=== PATIENT | female | born 1975 | race Caucasian/White ===

== ENCOUNTER 2022-05-05 06:02 | Day surgery (SDC) | payer OTHER ==
[~2022-05-05] VITALS: Ht 175.3 cm; Wt 85.8 kg
[~2022-05-05 06:02] MED LIST: MULVITA PO
--- NOTE | 2022-05-05 09:53 | NUR ---
Patient up to Ambulate independently. Gait steady. Discharge instructions reviewed with patient. Patient verbalizes understanding. Copy given to patient to take home. Discharged via wheelchair to private car for ride home.
== END 2022-05-05 10:10 | disposition home or self-care (01) ==
LOC: ORSCMMR 06:02 → ORD 07:30 → ORSCMMR 10:10
PROVIDERS: Surgery
PROC: 0HBT0ZX Excision of Right Breast, Open Approach, Diagnostic (ICD-10-PCS; principal; 2022-05-05 07:30)
DX: Q83.1 Accessory breast (principal)
CPT/HCPCS: 88305; A9270; J0690; J1100; J1885; J2250; J2405; J2704; J3010; J7120

== ENCOUNTER 2024-11-10 09:07 | Day surgery (SDC) | payer OTHER ==
[~2024-11-10] VITALS: Ht 170.2 cm; Wt 90.0 kg
[2024-11-10] VITALS (15 sets, daily range): BP systolic 103–148; BP diastolic 71–113
[~2024-11-10 09:07] MED LIST changes: +DOTTI1 EA18 TOP; +ESCI10 PO; +LEVO-T88 MCG PO; +Lactated Ringer's 1,000 ML IV SCH
[2024-11-10] MEDS ORDERED: propofoL 40 ML IV ONE (10:43)
[2024-11-10] MEDS ORDERED: Midazolam HCl 1MG / ML 2ML Vial ONE (10:44)
--- NOTE | 2024-11-10 10:53 | NUR ---
11/10/24 1053 Florentino Pimentel CONFIRMED AND REVIEWED H&P, MEDCICATIONS, ALLERGIES, MEDICAL HISTORY, RESPIRATORY HISTORY, VITAL SIGNS, 3-LEAD EKG, CONSENTS, AND PHYSICIAN ORDERS. PATIENT CONFIRMS NPO STATUS AND AGREES WITH SCHEDULED PROCEDURE. MONITOR INTACT WITH CONTINUOUS PULSE OXIMETRY, CAPNOGRAPHY, 3-LEAD EKG, INTERMITTENT BP. SUPPLEMENTAL O2 TO BE TITRATED THROUGHOUT PROCEDURE TO MAINTAIN O2 SATURATION ABOVE 90%. PATIENT DETERMINED TO BE ASA APPROPRIATE FOR PROPOFOL SEDATION PRIOR TO START OF PROCEDURE BY DR. MEADE.
--- NOTE | 2024-11-10 11:40 | NUR ---
Discharge instructions reviewed with patient. Patient verbalizes understanding. Copy given to patient to take home. Patient States Post-Procedure ride home has been arranged. Discharged via wheelchair to private car for ride home.
== END 2024-11-10 11:41 | disposition home or self-care (01) ==
LOC: ORSCMMR 09:07 → ORD 10:00 → ORSCMMR 11:41
PROVIDERS: Internal Medicine Gastroenterology
PROC: 0DBM8ZX Excision of Descending Colon, Via Natural or Artificial Opening Endoscopic, Diagnostic (ICD-10-PCS; principal; 2024-11-10 10:00)
PROC: 0DBL8ZZ Excision of Transverse Colon, Via Natural or Artificial Opening Endoscopic (ICD-10-PCS; principal; 2024-11-10 10:00)
DX: Z12.11 Encounter for screening for malignant neoplasm of colon (principal); K63.5 Polyp of colon; E03.9 Hypothyroidism, unspecified; F32.A Depression, unspecified; Z79.890 Hormone replacement therapy; Z79.899 Other long term (current) drug therapy
CPT/HCPCS: 88305; J2250; J2704; J7120